=== PATIENT | female | born 1990 | race Caucasian/White ===

== ENCOUNTER 2017-09-30 19:13 | Day surgery (SDC) | payer BC ==
[2017-09-30 19:35] VITALS: BP 103/58; TEMP 98.7; BMI 26.6
[2017-09-30] MEDS ORDERED: Lactated Ringer's 1,000 ML IV SCH (19:45)
--- NOTE | 2017-09-30 19:53 | PDOC.EVN ---
Event Note - Event Note Event Note: 10/01/15 @ 1945: L&D Triage: Patient of Dr Bacon Reason for eval: LAP at 35 weeks and decreased FM HPI: Patient is a 27 yo at 35 weeks, prior CS x 1, at 36 weeks for FTP 2 years ago, here for LAP and some decreased movement. Review of systems: No sxs, no VB, no LOF, no trauma, no N/V, no HARPER or visual changes nor RUQ pain OB HX: CS x 1 Allergies: none Surgeries: CS, love Physical: 97.8 103/58 93 NAD Abd soft NT size appropriate Cervix: pending RN exam Monitors: NST performed: rate of 160 with good variability. Uterine irritability o toco Ordered: CMP and BPP; IVFs Assessment and plan: Multip with CS x 1 in past, 35 weeks, with decreased FM. Good variability on NST but will order BPP as well. IVF hydrate for now. No evidence true PTL
[2017-09-30 20:27] LABS: ALT (SGPT) 10 U/L (8-55); AST (SGOT) 16 U/L (5-34); Albumin 3.7 g/dL (3.5-5.0); Alkaline Phosphatase 99 U/L (40-150); Anion Gap 11 mmol/L (10-20); BUN (Urea Nitrogen) 7 mg/dL (7.0-18.7); Bilirubin, Total 0.3 mg/dL (0.2-1.2); Calc. Creatinine Clearance 163 mL/min (70-130); Calcium 9.5 mg/dL (7.8-10.44); Carbon Dioxide 24 mmol/L (22-29); Chloride 105 mmol/L (98-107); Estimated GFR-MDRD Greater than 90; Globulin 2.8 g/dL (2.4-3.5); Glucose 90 mg/dL (70-105); Potassium 3.9 mmol/L (3.5-5.1); Protein, Total 6.5 g/dL (6.0-8.3); Sodium 136 mmol/L (136-145)
--- NOTE | 2017-09-30 20:33 | PDOC.EVN ---
Event Note - Event Note Event Note: @ 2012: cervix closed. BPP 01/18 with GERRY 20. CMP normal. Ok for outpatient care after this IVF hydration.
--- NOTE | 2017-09-30 21:25 | ULT ---
BIOPHYSICAL PROFILE: 09/30/17 HISTORY: Decreased movements at 35 weeks. FINDINGS: There is a single intrauterine gestation in cephalic present. The cardiac doppler demonstrates heart tones with a heart rate of 160 beats per minute. The placenta is located anteriorly witho ut evidence of placenta previa. There is a normal amount of amniotic fluid, but the amniotic fluid in dex is certainly at the upper limits of normal to borderline increased with an amniotic fluid index o f 20.9 cm. A single image of umbilical artery doppler demonstrates a peak systolic velocity in the um bilical artery of 47.6 cm/s, end diastolic velocity of 19.5 cm/s, and a resistive index of 0.59. Syst olic to diastolic ratio of the umbilical artery is 2.44. A score of 2 was obtained each for movement, breathing, tone, and amniotic fluid vo lume. IMPRESSION: 1. Amniotic fluid is at the upper limits of normal to borderline increased with an amniotic flui d index of 20.9 cm. 2. Nonspecific increased echogenicity in the amniotic fluid. 3. Single intrauterine gestation with heart tones documented. 4. Total biophysical profile score of 8 out 8 is obtained. POS: [facility]
== END 2017-09-30 21:29 | disposition home or self-care (01) ==
LOC: L&D/OP 19:13
PROVIDERS: ATTEND Student in an Organized Health Care Education/Training Program
DX: O36.8130 Decreased fetal movements, third trimester, not applicable or unspecified (principal); Z3A.35 35 weeks gestation of pregnancy; Z79.899 Other long term (current) drug therapy
CPT/HCPCS: 76819; 80053

== ENCOUNTER 2017-10-06 04:04 | Inpatient (IN) | payer BC ==
[2017-10-06 04:44] VITALS: BMI 26.6
[2017-10-06] MEDS ORDERED: Betamet Acet/Betamet Na Ph 30 MG/5 ML VIAL ONE (05:03)
[2017-10-06] MEDS ORDERED: Penicillin G Potassium 5 MILL.UNITS VIAL ONE (05:03)
[2017-10-06 05:57] LABS: Hemoglobin 10.8 g/dL (12.0-16.0); Mean Corpuscular HGB CONC 35.1 g/dL (32.0-36.0); Mean Corpuscular Hemoglobin 30.1 pg (27.0-31.0); Mean Corpuscular Volume 85.6 fl (81.0-99.0); Mean Platelet Volume 7.7 fL (7.4-10.4); Platelet Count 172 thou/uL (130-400); RBC Distribution Width 11.8 % (11.5-14.5); Red Blood Cell (RBC) Count 3.59 mill/uL (4.20-5.40); White Blood Cell (WBC) Count 7.8 thou/uL (4.8-10.8)
[2017-10-06 06:36] LABS: HBSAg Index 0.18 S/CO (0-0.99); Hep B Surf Ag Non-Reactive S/CO (NonReactive); Syphilis Antibody Nonreactive (Nonreactive); Syphilis Antibody Index 0.08 S/CO (<1.00 Non-Reactive)
[2017-10-06] MEDS ORDERED: Betamet Acet/Betamet Na Ph 30 MG/5 ML VIAL IM SCH (07:00)
[2017-10-06] MEDS ORDERED: Penicillin G Potassium 5 MILL.UNITS in Sodium Chloride 0.9% 100 ML IVPB SCH (07:00)
[2017-10-06] MEDS ORDERED: Bicitra 30 ML UDCUP PO SCH (07:30)
[2017-10-06] MEDS ORDERED: CEFAZOLIN/Water 2 GM/20 ML SYRINGE SLOW IVP SCH (07:30)
--- NOTE | 2017-10-06 08:13 | PDOC.LDHP ---
Labor and Delivery H&P Chief complaint: loss of fluid HPI: 27yo at 35w6d by LMP with LOF clear copious since 0200. Some painful ctx. good FM. Current gestational age (weeks): 35 Due date: 11/04/17 Dating criteria: last menstrual period Grav: 2 Para: 1 Current complications: none Abnormal US findings: No Past Medical History: denies Current medications: pre- vitamins, iron Previous surgical history: low tranverse CS, cholecystectomy Allergies/Adverse Reactions: Allergies Allergy/AdvReac Type Severity Reaction Status Date / Time No Known Drug Allergies Allergy Verified 09/30/17 19:28 No Known Drug Intolerances Allergy Verified 09/30/17 19:28 Social history: none - Physical Exam Vital signs reviewed and normal: yes General: NAD Heart: RRR Lungs: CTAB Abdomen: gravid Extremeties: no edema FHT: category 1 [place] contractions every: 4min - Vaginal Exam cm dilated: 0 Effacement: 50% Station: -3 (copious clear fluid) - OB Labs Blood type: A RH: positive Antibody Screen: negative HIV: negative RPR: negative HEPSAg: negative 1 hour GCT: positive 3 hour GTT: negative GBS: unknown Rubella: immune - Assessment L&D Assessment: premature rupture of membranes - Plan Plan: admit to L&D, to OR for section, GBS antibiotic prophylaxis, informed consent obtained, anesthesia consult for pain management -: Desires to proceed with repeat CS. s/p BMZ x 1 dose and PCN x 1 dose. FHT reassuring.
--- NOTE | 2017-10-06 08:25 | PDOC.OPDEL ---
OB Operative/Delivery Note Delivery Dr/Surgeon: Jordi Assist: Thor Pre-Delivery Diagnosis: ruptured membrane ( at 35w6d) Procedure/Post Delivery Dx: repeat low transverse CS Weeks gestation: 35 Anesthesia: spinal - Additional Findings/Plan Placenta delivered: spontaneous findings: low transverse hysterotomy without extension, normal uterus, normal tubes, normal ovaries Post delivery plan: routine recovery
[2017-10-06] MEDS ORDERED: Morphine PF 1 MG/ML SYR ONE (08:47)
[2017-10-06] MEDS ORDERED: Oxytocin 10 UNITS/ML VIAL ONE (08:48)
[2017-10-06] MEDS ORDERED: Bupivacaine 0.75% W/DEXTROSE 8.25% 2 ML AMP ONE (08:49)
[2017-10-06] MEDS ORDERED: Lidocaine 1% (PF) 30 ML VIAL ONE (08:51)
[2017-10-06] MEDS ORDERED: Penicillin G 2.5 MILL.units 50 ML IVPB SCH (09:00)
[2017-10-06] MEDS ORDERED: Penicillin G Potassium 2.5 MILL.UNITS in Sodium Chloride 0.9% 50 ML IVPB SCH ×2 (09:00→11:00)
[2017-10-06] MEDS ORDERED: PHENYLEPHRINE-NS 100 MCG/ML 10 ML SYRINGE ONE ×2 (09:04→13:07)
[2017-10-06] MEDS ORDERED: LR / Pitocin 40 units/1000 ml 1,000 ML ONE (10:04)
[2017-10-06] MEDS ORDERED: diphenhydrAMINE 25 MG CAP PO PRN (11:46)
[2017-10-06] MEDS ORDERED: Lanolin Ointment 7 GM TUBE TOP PRN (11:46)
[2017-10-06] MEDS ORDERED: HYDROcodone/Acetaminophen 5/325 mg Tablet PO PRN (11:46)
[2017-10-06] MEDS ORDERED: Promethazine HCl 25 MG/ML VIAL IM PRN (11:46)
[2017-10-06] MEDS ORDERED: Zolpidem Tartrate 5 MG TAB PO PRN (11:46)
[2017-10-06] MEDS ORDERED: Bisacodyl 10 MG SUPP PR PRN (11:46)
[2017-10-06] MEDS ORDERED: Ondansetron HCl/PF 4 MG/2 ML Vial IVP PRN ×2 (11:46→12:31)
[2017-10-06] MEDS ORDERED: Adacel (T-DAP) 0.5 ML VIAL IM ONE (11:46)
[2017-10-06] MEDS ORDERED: Acetaminophen 325 MG TAB PO PRN (11:46)
[2017-10-06] MEDS ORDERED: LR / Pitocin 40 units/1000 ml 1,000 ML IV SCH ×3 (12:00)
[2017-10-06] MEDS ORDERED: Promethazine HCl 25 MG SUPP PR PRN (12:31)
[2017-10-06] MEDS ORDERED: Eucerin (Mineral Oil/Petrolatum,White) 30 gm Jar TOP PRN (12:31)
[2017-10-06] MEDS ORDERED: Naloxone HCl 0.4 mg/ml Vial IVP PRN ×2 (12:31)
[2017-10-06] MEDS ORDERED: Ketorolac Tromethamine 30 MG/ML VIAL IVP PRN (12:31)
[2017-10-06] MEDS ORDERED: diphenhydrAMINE 50 MG/ML VIAL IVP PRN (12:31)
[2017-10-06] MEDS ORDERED: Communication Order-Pharmacy FS SCH (12:45)
[2017-10-06] MEDS: Ketorolac Tromethamine 30 MG/ML VIAL IVP SCH (12:51)
[2017-10-06] MEDS: Docusate Calcium (SURFAK) 240 MG CAP PO SCH ×2 (12:57→22:13)
[2017-10-06] MEDS: Ferrous Sulfate 325 MG TAB PO SCH ×2 (12:57→22:12)
[2017-10-06] MEDS: Prenatal Vitamin 1 TAB PO SCH (12:57)
[2017-10-06] MEDS ORDERED: CEFAZOLIN 2 GM in Sodium Chloride 0.9% 100 ML IVPB SCH (14:00)
[2017-10-06] MEDS: CEFAZOLIN/Water 2 GM/20 ML SYRINGE SLOW IVP SCH ×2 (14:36→22:05)
[2017-10-06] MEDS: Ibuprofen 800 MG TAB PO SCH ×2 (14:37→22:12)
[2017-10-06] MEDS ORDERED: Prevnar 13-Val Conj/PF 0.5 ML SYRINGE IM ONE (15:00)
--- NOTE | 2017-10-06 15:32 | OP ---
DATE OF ENCOUNTER: 10/06/2017 This is just documentation that I was radiology physician assistant on a on patient Jessica Foote. PRIMARY SURGEON: Dr. Natividad Bacon.
[2017-10-06] MEDS: Simethicone Chewable 80 MG TAB PO PRN (17:17)
[2017-10-07] MEDS: Ketorolac Tromethamine 30 MG/ML VIAL IVP SCH (00:29)
[2017-10-07] MEDS ORDERED: HYDROcodone/Acetaminophen 5/325 mg Tablet PO PRN (00:30)
[2017-10-07 05:21] LABS: Hemoglobin 11.3 g/dL (12.0-16.0); Mean Corpuscular HGB CONC 34.2 g/dL (32.0-36.0); Mean Corpuscular Hemoglobin 29.8 pg (27.0-31.0); Mean Corpuscular Volume 86.9 fl (81.0-99.0); Mean Platelet Volume 7.6 fL (7.4-10.4); Platelet Count 165 thou/uL (130-400); RBC Distribution Width 11.6 % (11.5-14.5); Red Blood Cell (RBC) Count 3.79 mill/uL (4.20-5.40); White Blood Cell (WBC) Count 9.3 thou/uL (4.8-10.8)
[2017-10-07] MEDS: CEFAZOLIN/Water 2 GM/20 ML SYRINGE SLOW IVP SCH ×3 (05:58→22:20)
[2017-10-07] MEDS: Ibuprofen 800 MG TAB PO SCH ×4 (06:00→22:19)
[2017-10-07] MEDS: Naloxone HCl 0.4 mg/ml Vial IV PRN ×2 (06:26→06:50)
[2017-10-07] MEDS: HYDROcodone/Acetaminophen 5/325 mg Tablet PO PRN ×5 (07:54→22:18)
[2017-10-07] MEDS: Ferrous Sulfate 325 MG TAB PO SCH ×2 (07:56→22:13)
[2017-10-07] MEDS: Docusate Calcium (SURFAK) 240 MG CAP PO SCH ×2 (07:56→22:19)
[2017-10-07] MEDS: Prenatal Vitamin 1 TAB PO SCH (07:56)
[2017-10-07] MEDS: Simethicone Chewable 80 MG TAB PO PRN ×2 (07:56→17:06)
--- NOTE | 2017-10-07 08:26 | PRG ---
DATE OF SERVICE: 10/07/2017 PRIMARY OB: Dr. Natividad Bacon HISTORY OF PRESENT ILLNESS: The patient is a 27-year-old female postop day 1, status post repeat C-s ection at 35 weeks secondary to PPROM. The patient reports that she is doing well. She is toleratin g p.o., voiding on her own, having decreased lochia and having good pain control. PHYSICAL EXAMINATION: VITAL SIGNS: This morning blood pressure is 100/57, temperature 97.8, pulse of 57, respiratory rate of 18. GENERAL: She appears to be in no acute distress. She is alert and oriented, cooperative and pleasan t to interact with. HEENT: Head is normocephalic, atraumatic. ABDOMEN: Soft. Fundus is firm. Incision is clean, dry, and intact. EXTREMITIES: Nontender, nonedematous. Her hemoglobin is 11.3, hematocrit 32.9, platelets of 165,000. ASSESSMENT AND PLAN: The patient is a 27-year-old female postop day 1, status post a repeat C-sectio n at 35 weeks secondary to PPROM. We will continue postoperative care. Anticipate discharge in the next couple of days.
[2017-10-08] MEDS: Ibuprofen 800 MG TAB PO SCH ×3 (06:06→21:15)
[2017-10-08] MEDS: CEFAZOLIN/Water 2 GM/20 ML SYRINGE SLOW IVP SCH (06:07)
--- NOTE | 2017-10-08 06:24 | PDOC.PP ---
Post Progress Note Post Day #: POD#2 Subjective: Doing well. No complaints. PO intake tolerated: yes Flatus: yes Ambulation: yes Vital Signs (12 hours) Temp Pulse Resp BP 10/08/17 04:00 98.4 F 71 20 10/08/17 00:00 98.4 F 71 20 10/07/17 20:00 98.4 F 71 20 10/07/17 19:20 98.4 F 71 17 98/50 L Weight Weight 72.575 kg - Physical Examination General: NAD Respiratory: non-labored breathing Abdominal: no distention Extremities: negative homans (B) Skin: CS incision dry & intact Psychiatric: A&Ox3 Result Diagrams: 10/07/17 04:57 Additional Labs: Post Labs Blood Type A POSITIVE 10/06/17 04:35 Hep Bs Antigen Non-Reactive S/CO (NonReactive) 10/06/17 04:35 - Assessment/Plan Advance diet. D/c Ancef. Ambulate in hallway.
[2017-10-08] MEDS: Prenatal Vitamin 1 TAB PO SCH (09:30)
[2017-10-08] MEDS: Ferrous Sulfate 325 MG TAB PO SCH ×2 (09:30→21:18)
[2017-10-08] MEDS: Docusate Calcium (SURFAK) 240 MG CAP PO SCH ×2 (09:30→21:15)
[2017-10-08] MEDS: HYDROcodone/Acetaminophen 5/325 mg Tablet PO PRN (13:02)
[2017-10-09] MEDS: Ibuprofen 800 MG TAB PO SCH ×2 (05:20→13:47)
--- NOTE | 2017-10-09 07:55 | DIS ---
DATE OF ADMISSION: 10/06/2017 DATE OF DISCHARGE: 10/09/2017 PRIMARY OB: Dr. Natividad Bacon. ADMITTING DIAGNOSES: 1. Premature rupture of membranes. 2. Thirty-five week gestation. 3. Previous x1. HOSPITAL COURSE: The patient is a 27-year-old female with an intrauterine at 35 weeks who presented to labor and delivery and diagnosed with premature rupture of membranes. The patient had a history of previous and desired a repeat. Dr. Bacon performed a repeat section without complication and after recovery, the patient was sent to the for continued care. Her course has been uncomplicated. She is now day #3, she reports today she i s having good pain control, tolerating p.o., voiding on her own, having decreased lochia. OBJECTIVE: VITAL SIGNS: Today, blood pressure is 107/62, temperature 98.7, pulse of 86, respiratory rate 16. GENERAL: She appears to be in no acute distress. She is alert and oriented, cooperative and pleasan t to interact with. HEENT: Head is normocephalic, atraumatic. ABDOMEN: Fundus is firm. Incision is clean, dry, and intact. EXTREMITIES: Nontender, nonedematous. LABORATORY DATA: Her hemoglobin is 11.3, hematocrit 32.9, platelets 165,000. DISPOSITION: The patient is being discharged to home. DISCHARGE MEDICATIONS: She is being given ibuprofen 800 mg #20 and tramadol 50 mg #20 to be taken as needed for pain. DISCHARGE INSTRUCTIONS: She has instructions to limit her activity under 15 pounds of lifting weight and low exertional activities for the next 4-6 weeks. Patient also has instructions to seek medical attention should she experience fever, increasing pain, bleeding, redness or drainage from her incis ion site. She has been asked to follow up with Dr. Bacon in 2 weeks for an incision check.
[2017-10-09 08:53] VITALS: BP 104/71; TEMP 98.3
[2017-10-09] MEDS: Ferrous Sulfate 325 MG TAB PO SCH (08:53)
[2017-10-09] MEDS: Docusate Calcium (SURFAK) 240 MG CAP PO SCH (10:12)
[2017-10-09] MEDS: Prenatal Vitamin 1 TAB PO SCH (10:13)
--- NOTE | 2017-10-11 11:23 | OP ---
DATE OF OPERATION: 10/06/2017 PREOPERATIVE DIAGNOSES: 1. Intrauterine at 35 weeks and 6 days. 2. rupture of membranes. 3. labor. 4. Prior x1, declines trial of labor. POSTOPERATIVE DIAGNOSES: 1. Intrauterine at 35 weeks and 6 days. 2. rupture of membranes. 3. labor. 4. Prior x1, declines trial of labor. PROCEDURE: A repeat low-transverse section via Pfannenstiel skin incision. ANESTHESIA: Spinal. ATTENDING SURGEON: Natividad Bacon M.D. SLAB MILLER OPERATOR SURGEON: Omero Mcrae M.D. ESTIMATED BLOOD LOSS: 900 mL. FINDINGS: Female infant, cephalic presentation, clear amniotic fluid, vigorous. Apgars and weight a re pending. Normal uterus, ovaries, and tubes bilaterally. Placenta spontaneously delivered. DRAINS: Us catheter. PATHOLOGY: Placenta. COMPLICATIONS: None. OPERATIVE TECHNIQUE: The patient was taken to the operating room where spinal anesthesia was obtaine d without difficulty. The patient was prepped and draped in a sterile fashion in the dorsal supine p osition with a leftward tilt. After ensuring adequacy of anesthesia, a Pfannenstiel skin incision wa s made and carried down to the underlying subcutaneous tissue with the knife. The fascia was nicked in the midline with the knife and carried laterally with the Hernandez scissors. The superior aspect of t he fascia was tented with 2 Kochers and dissected off the rectus bluntly. The inferior aspect of the fascia was tented with 2 Kochers and dissected off the rectus down to the pubic symphysis. The ian toneum was bluntly entered into and manually retracted. The Rafa O retractor was placed and the lo wer uterine segment was incised in a transverse fashion and extended with a Kim maneuver. The infan t's head was brought to the hysterotomy and delivered with fundal pressure followed by the body atrau matically. The infant was handed to awaiting debi team, after cord clamp. A slight delayed cord clam ping was performed and the placenta was allowed to spontaneously deliver. The uterus was exteriorize d and the posterior cul-de-sac was lapped out and the uterus was cleared of all clots and debris and tone was noted to improve. The uterus was placed back into the abdomen. The hysterotomy was repaire d with a 1 Monocryl in running locking fashion. An imbricating layer was placed for hemostasis of #1 Monocryl. Hemostasis was noted to be excellent. The pelvis was copiously irrigated and suctioned a nd the Rafa O retractor was removed. The rectus muscles were examined and noted to be hemostatic. The fascia was reapproximated with an 0 PDS x2 sutures with excellent reapproximation. Subcutaneous tissue was irrigated and cauterized of any bleeders and reapproximated with the 2-0 plain gut in a r unning fashion. The skin was closed with a 4-0 Monocryl in subcuticular fashion. Dermabond was appl ied. The patient tolerated procedure well. Sponge, lap, and needle counts were correct x2. The pat ient was taken to recovery room in stable condition. Patient received Ancef 2 grams prior to the pro cedure.
== END 2017-10-09 15:02 | disposition home or self-care (01) | DRG 765 ==
LOC: L&D/OP 04:04 → L&D 04:35 → 3SW 12:48
PROVIDERS: ADMIT Student in an Organized Health Care Education/Training Program; ATTEND Student in an Organized Health Care Education/Training Program
PROC: 10D00Z1 Extraction of Products of Conception, Low, Open Approach (ICD-10-PCS; principal; 2017-10-06)
DX: O42.013 Preterm premature rupture of membranes, onset of labor within 24 hours of rupture, third trimester (principal); O60.14X0 Preterm labor third trimester with preterm delivery third trimester, not applicable or unspecified; N85.8 Other specified noninflammatory disorders of uterus; Z37.0 Single live birth; Z3A.35 35 weeks gestation of pregnancy; O34.211 Maternal care for low transverse scar from previous cesarean delivery; Z90.49 Acquired absence of other specified parts of digestive tract
CPT/HCPCS: 36415; 51702; 85027; 86780; 86850; 86900; 86901; 87340; 88307; 90715; 99285; A4216; J0702; J1885; J2001; J2274; J2310; J2540; J2590; J3490; J7050